=== PATIENT | female | born 1940 | race Caucasian/White ===

== ENCOUNTER 2019-10-23 06:55 | Day surgery (SDC) | payer MEDICARE, OTHER ==
[~2019-10-23 06:55] MED LIST: Lactated Ringers 1,000 ML IV SCH; Lidocaine 1%/Sod Bicarbonate in NS 8.4% 1 ML Syringe IDERM PRN; Sodium Chloride 0.9% 10 ML Syringe FLUSH PRN
--- NOTE | 2019-10-23 07:31 | PCM.PREANE ---
Preanesthetic Assessment - Procedure Proposed Procedure: Colonoscopy - Anesthesia/Transfusion/Family Hx Anesthesia History: Prior Anesthesia Without Reaction Family History of Anesthesia Reaction: No Transfusion History: No Prior Transfusion(s) - Review of Systems General: No Symptoms Pulmonary: No Symptoms Cardiovascular: Dyspnea on Exertion Gastrointestinal: Nausea Neurological: Numbness (in back "spurs in neck") Other: Reports: Diabetes, Sinus Problem (PND), Neck Pain (spurs ) - Physical Assessment NPO Status Date: 10/22/19 NPO Status Time: 00:00 Height: 1.57 m Weight: 83.96 kg ASA Class: 2 Mental Status: Alert & Oriented x3 Airway Class: Mallampati = 2 Dentition: Reports: Bridge, Caries Thyro-Mental Finger Breadths: 2 Mouth Opening Finger Breadths: 2 ROM/Head Extension: Limited/Partial Lungs: Clear to Auscultation, Normal Respiratory Effort Cardiovascular: Regular Rate, Regular Rhythm - Allergies Allergies/Adverse Reactions: Allergies Allergy/AdvReac Type Severity Reaction Status Date / Time No Known Allergies Allergy Verified 10/23/19 06:55 - Blood Blood Available: No Product(s) Available: None - Anesthesia Plan Pre-Op Medication Ordered: None - Acknowledgements Anesthesia Type Planned: MAC Pt an Appropriate Candidate for the Planned Anesthesia: Yes Alternatives and Risks of Anesthesia Discussed w Pt/Guardian: Yes Pt/Guardian Understands and Agrees with Anesthesia Plan: Yes PreAnesthesia Questionnaire HEENT History: Reports: Allergic Rhinitis, Sinusitis, Other (See Below) Other HEENT History: post nasal drip, wears glasses Cardiovascular History: Reports: High Cholesterol, Hypertension Respiratory History: Reports: Other (See Below) Other Respiratory History: acute bronchitis, cough, wheezing Gastrointestinal History: Reports: Irritable Bowel Syndrome Genitourinary History: Reports: Chronic Renal Insuffiency, Other (See Below) Other Genitourinary History: vaginal candidiasis 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 Musculoskeletal History: Reports: None Neurological History: Reports: None Psychiatric History: Reports: None Endocrine/Metabolic History: Reports: None Hematologic History: Reports: None Immunologic History: Reports: None Oncologic (Cancer) History: Reports: None Dermatologic History: Reports: Psoriasis - Infectious Disease History Infectious Disease History: Reports: None - Past Surgical History Head Surgeries/Procedures: Reports: None HEENT Surgical History: Reports: Cataract Surgery Cardiovascular Surgical History: Reports: None Respiratory Surgical History: Reports: None GI Surgical History: Reports: None Female Surgical History: Reports: None Male Surgical History: Reports: None Endocrine Surgical History: Reports: None Neurological Surgical History: Reports: Lumbar Spine Musculoskeletal Surgical History: Reports: None Oncologic Surgical History: Reports: None Dermatological Surgical History: Reports: None - SUBSTANCE USE Smoking Status *Q: Never Smoker Tobacco Use Within Last Twelve Months: No Second Hand Smoke Exposure: No Days Per Week of Alcohol Use: 1 Number of Drinks Per Day: 0 Total Drinks Per Week: 0 Recreational Drug Use History: No - HOME MEDS Home Medications: Home Meds Aspirin [Aspirin EC] 81 mg PO DAILY 10/22/19 [History] Canagliflozin/Metformin HCl [Invokamet Xr 150-500 mg Tablet] 1 tab PO DAILY 05/02 [History] Clobetasol Propionate 1 dose TOP BID 10/22/19 [History] Losartan Potassium 100 mg PO DAILY 10/22/19 [History] Metaxalone 800 mg PO TID PRN 10/22/19 [History] Vit C/E/Zn/Coppr/Lutein/Zeaxan [Preservision Areds 2 Softgel] 2 cap PO DAILY 05/02 [History] amLODIPine Besylate [Amlodipine Besylate] 10 mg PO DAILY 10/22/19 [History] atorvaSTATin Calcium [Atorvastatin Calcium] 20 mg PO BEDTIME 10/22/19 [History] hydroCHLOROthiazide [Hydrochlorothiazide] 12.5 mg PO DAILY 10/22/19 [History] - CURRENT (IN HOUSE) MEDS Current Meds: Current Medications Lactated Ringer's (Ringers, Lactated) 1,000 mls @ 125 mls/hr IV ASDIRECTED GREGG Stop: 10/23/19 23:00 Lidocaine/Sodium Bicarbonate (Buffered Lidocaine 1% In Ns 8.4%) 0.25 ml IDERM ONETIME PRN PRN Reason: Prior to IV Start Stop: 10/23/19 18:00 Sodium Chloride (Saline Flush) 10 ml FLUSH ASDIRECTED PRN PRN Reason: Keep Vein Open Stop: 10/23/19 18:00
[2019-10-23] MEDS ORDERED: Propofol 200 MG/20 ML SDV ONE ×5 (07:40→09:28)
[2019-10-23] MEDS ORDERED: fentaNYL 100 MCG/2 ML SDV ONE (07:40)
[2019-10-23] MEDS ORDERED: Lidocaine 1% 4 ML ONE (07:41)
[2019-10-23] MEDS ORDERED: Labetalol 100 MG/20 ML MDV ONE (08:16)
[2019-10-23] MEDS ORDERED: Lactated Ringers 1,000 ML ONE (09:01)
--- NOTE | 2019-10-23 09:59 | PCM.PRNOTE ---
- Free Text/Narrative Note: Date: 10/23/2019 Procedure: diagnostic colonoscopy Indication: positive cologuard screening test Endoscopist: Bebeto Peters MD Findings: redundant sigmoid with scattered diverticula. Appendiceal orifice visualized. Prep was not very good. Several small hyperplastic-appearing polyps in the proximal rectum, withe one larger pedunculated polyp in the distal rectum. Detailed Report: The patient was taken to the endoscopy suite and placed in left lateral decubitus position. Time out was performed, and monitored anesthesia care was initiated. The anus appeared normal. Digital rectal exam was unremarkable. The colonoscope was lubricated and inserted anally. The scope was advanced to the appendiceal orifice. This was difficult and tedious due to the redundancy of the colon, particularly the sigmoid. The prep was not very good, with the proximal half of the colon coated in sticky liquid stool. Thorough irrigation was used and mucosal surfaces were carefully inspected on slow withdrawal of the scope. There were scattered diverticula throughout the length of the colon, most concentrated in the sigmoid. There was lots of mucus coating the sigmoid and rectum. About a dozen small polypoid lesions were noted near the rectosigmoid junction, the largest of which were biopsied with forceps with bases fulgurated. There was one slightly larger, subcentimeter pedunculated polyp in the distal rectum that was biopsied with the hot snare. No significant hemorrhoidal disease appreciated on retroflexion of the scope within the rectum. Air was evacuated prior to complete withdrawal of the scope. The patient tolerated the procedure well. Bebeto Peters MD General Surgery
--- NOTE | 2019-10-23 10:06 | PCM48HPAN ---
Post Anesthesia Note - EVALUATION WITHIN 48HRS OF ANESTHETIC Vital Signs in Normal Range: Yes Patient Participated in Evaluation: Yes Respiratory Function Stable: Yes Airway Patent: Yes Cardiovascular Function Stable: Yes Hydration Status Stable: Yes Pain Control Satisfactory: Yes Nausea and Vomiting Control Satisfactory: Yes Mental Status Recovered: Yes Vital Signs: Last Vital Signs Temp 36.3 C 10/23/19 09:53 Pulse 67 10/23/19 09:53 Resp 14 10/23/19 09:53 BP 116/67 10/23/19 09:53 Pulse Ox 93 L 10/23/19 09:53 - COMMENTS/OBSERVATIONS Free Text/Narrative:: no anesthesia complications noted
== END 2019-10-23 10:30 | disposition home or self-care (01) ==
LOC: JD.SDS 06:55
PROVIDERS: ATTEND Surgery
DX: K62.1 Rectal polyp (principal); E78.00 Pure hypercholesterolemia, unspecified; E11.22 Type 2 diabetes mellitus with diabetic chronic kidney disease; I12.9 Hypertensive chronic kidney disease with stage 1 through stage 4 chronic kidney disease, or unspecified chronic kidney disease; N18.9 Chronic kidney disease, unspecified; Z11.59 Encounter for screening for other viral diseases; Z79.899 Other long term (current) drug therapy; Z79.82 Long term (current) use of aspirin; Z79.84 Long term (current) use of oral hypoglycemic drugs
CPT/HCPCS: 45380; 45385; 82962; J2001; J2704; J3010; J3490; J7120; 00811; 88305

== ENCOUNTER 2020-07-08 07:43 | Day surgery (SDC) | payer MEDICARE, OTHER ==
[2020-07-08] MEDS ORDERED: fentaNYL 100 MCG/2 ML SDV ONE (07:46)
[2020-07-08] MEDS ORDERED: Propofol 200 MG/20 ML SDV ONE (07:46)
[2020-07-08] MEDS ORDERED: Lidocaine 1% 4 ML ONE (07:47)
--- NOTE | 2020-07-08 08:12 | PCM.PREANE ---
Preanesthetic Assessment - Procedure Proposed Procedure: Colonoscopy - Anesthesia/Transfusion/Family Hx Anesthesia History: Prior Anesthesia Without Reaction Transfusion History: No Prior Transfusion(s) - Review of Systems General: No Symptoms Pulmonary: No Symptoms Cardiovascular: No Symptoms Gastrointestinal: No Symptoms Neurological: Paresthesia (rt leg, lateral surface numbness knee down), Pre- Existing Deficit Other: Reports: Diabetes - Physical Assessment NPO Status Date: 07/07/20 NPO Status Time: 22:30 Vital Signs: Last Vital Signs Temp 97.6 F 07/08/20 07:40 Pulse 98 07/08/20 07:40 Resp 18 07/08/20 07:40 BP 151/87 H 07/08/20 07:40 Pulse Ox 95 07/08/20 07:40 Height: 1.6 m Weight: 81.193 kg ASA Class: 2 Mental Status: Alert & Oriented x3 Airway Class: Mallampati = 3 Dentition: Reports: Normal Dentition Thyro-Mental Finger Breadths: 3 Mouth Opening Finger Breadths: 3 ROM/Head Extension: Limited/Partial Lungs: Clear to Auscultation, Normal Respiratory Effort Cardiovascular: Regular Rate, Regular Rhythm - Allergies Allergies/Adverse Reactions: Allergies Allergy/AdvReac Type Severity Reaction Status Date / Time No Known Allergies Allergy Verified 10/23/19 07:55 - Acknowledgements Anesthesia Type Planned: MAC Pt an Appropriate Candidate for the Planned Anesthesia: Yes Alternatives and Risks of Anesthesia Discussed w Pt/Guardian: Yes Pt/Guardian Understands and Agrees with Anesthesia Plan: Yes PreAnesthesia Questionnaire HEENT History: Reports: Allergic Rhinitis, Sinusitis, Other (See Below) Other HEENT History: post nasal drip, wears glasses Cardiovascular History: Reports: High Cholesterol, Hypertension Respiratory History: Reports: Other (See Below) Other Respiratory History: acute bronchitis, cough, wheezing Gastrointestinal History: Reports: Irritable Bowel Syndrome Genitourinary History: Reports: Chronic Renal Insuffiency, Other (See Below) Other Genitourinary History: vaginal candidiasis 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 Musculoskeletal History: Reports: None Neurological History: Reports: None Psychiatric History: Reports: None Endocrine/Metabolic History: Reports: None Hematologic History: Reports: None Immunologic History: Reports: None Oncologic (Cancer) History: Reports: None Dermatologic History: Reports: Psoriasis - Infectious Disease History Infectious Disease History: Reports: None - Past Surgical History Head Surgeries/Procedures: Reports: None HEENT Surgical History: Reports: Cataract Surgery Cardiovascular Surgical History: Reports: None Respiratory Surgical History: Reports: None GI Surgical History: Reports: None Female Surgical History: Reports: None Male Surgical History: Reports: None Endocrine Surgical History: Reports: None Neurological Surgical History: Reports: Lumbar Spine Musculoskeletal Surgical History: Reports: None Oncologic Surgical History: Reports: None Dermatological Surgical History: Reports: None - HOME MEDS Home Medications: Home Meds Aspirin [Aspirin EC] 81 mg PO DAILY 10/22/19 [History] Canagliflozin/Metformin HCl [Invokamet Xr 150-500 mg Tablet] 1 tab PO DAILY 10/22/19 [History] Clobetasol Propionate 1 dose TOP BID 10/22/19 [History] Losartan Potassium 100 mg PO DAILY 10/22/19 [History] Metaxalone 800 mg PO TID PRN 10/22/19 [History] Vit C/E/Zn/Coppr/Lutein/Zeaxan [Preservision Areds 2 Softgel] 2 cap PO DAILY 10/22/19 [History] amLODIPine Besylate [Amlodipine Besylate] 10 mg PO DAILY 10/22/19 [History] atorvaSTATin Calcium [Atorvastatin Calcium] 20 mg PO BEDTIME 10/22/19 [History] hydroCHLOROthiazide [Hydrochlorothiazide] 12.5 mg PO DAILY 10/22/19 [History] - CURRENT (IN HOUSE) MEDS Current Meds: Current Medications Lactated Ringer's (Ringers, Lactated) 1,000 mls @ 125 mls/hr IV ASDIRECTED GREGG Stop: 07/08/20 23:00 Lidocaine/Sodium Bicarbonate (Buffered Lidocaine 1% In Ns 8.4%) 0.25 ml IDERM ONETIME PRN PRN Reason: Prior to IV Start Stop: 07/08/20 18:00 Sodium Chloride (Saline Flush) 10 ml FLUSH ASDIRECTED PRN PRN Reason: Keep Vein Open Stop: 07/08/20 18:00 Discontinued Medications Fentanyl (Sublimaze) Confirm Administered Dose 100 mcg .ROUTE .STK-MED ONE Stop: 07/08/20 07:47 Lidocaine HCl (Xylocaine-Mpf 1%) Confirm Administered Dose 4 mls @ as directed .ROUTE .STK-MED ONE Stop: 07/08/20 07:48 Propofol (Diprivan 20 Ml) Confirm Administered Dose 400 mg .ROUTE .STK-MED ONE Stop: 07/08/20 07:47
--- NOTE | 2020-07-08 09:36 | PCM.PRNOTE ---
- Free Text/Narrative Note: Date: 07/08/2020 Procedure: diagnostic colonoscopy Indication: positive cologuard with inadequate colon prep on initial diagnostic colonoscopy Endoscopist: Bebeto Peters Findings: prep was good. Procedure was challenging due to redundancy. Cecum reached. Prep was good. Diverticulosis throughout. No new polyps identified. Detailed Report: The patient was taken to the endoscopy suite and placed in left lateral decubitus position. Timeout was performed, and monitored anesthesia care was initiated. Visual inspection of the anus was unremarkable. The colonoscope was inserted and advanced all the way to the cecum. This was challenging due to redundancy of the colon. With abdominal maneuvers, the cecum was reached. The appendiceal orifice was visualized. The prep was very good, much better than the last colonoscopy. Scope was slowly withdrawn and mucosal surfaces carefully inspected. Diverticulosis was noted throughout the entire length of the colon. No new polyps were identified. Air was suctioned prior to removal of the scope. The patient tolerated the procedure well.
--- NOTE | 2020-07-08 09:51 | PCM48HPAN ---
Post Anesthesia Note - EVALUATION WITHIN 48HRS OF ANESTHETIC Vital Signs in Normal Range: Yes Patient Participated in Evaluation: Yes Respiratory Function Stable: Yes Airway Patent: Yes Cardiovascular Function Stable: Yes Hydration Status Stable: Yes Pain Control Satisfactory: Yes Nausea and Vomiting Control Satisfactory: Yes Mental Status Recovered: Yes Vital Signs: Last Vital Signs Temp 97.9 F 07/08/20 09:36 Pulse 72 07/08/20 09:36 Resp 16 07/08/20 09:36 BP 101/62 07/08/20 09:36 Pulse Ox 94 L 07/08/20 09:36
== END 2020-07-08 10:13 | disposition home or self-care (01) ==
LOC: JD.SDS 07:43
PROVIDERS: ATTEND Surgery
DX: D12.0 Benign neoplasm of cecum (principal); K57.30 Diverticulosis of large intestine without perforation or abscess without bleeding; I12.9 Hypertensive chronic kidney disease with stage 1 through stage 4 chronic kidney disease, or unspecified chronic kidney disease; N18.9 Chronic kidney disease, unspecified; E78.00 Pure hypercholesterolemia, unspecified; E11.22 Type 2 diabetes mellitus with diabetic chronic kidney disease; Z79.899 Other long term (current) drug therapy; Z79.82 Long term (current) use of aspirin; Z98.890 Other specified postprocedural states
CPT/HCPCS: 45380; 88305; J2001; J2704; J3010; J7120; 00812

== ENCOUNTER 2021-10-14 14:15 | Inpatient (IN) | payer MEDICARE, OTHER ==
[2021-10-14] MEDS ORDERED: Metoprolol Tartrate 5 MG/5 ML SDV IVPUSH ONE ×2 (15:43→20:00)
[2021-10-14] MEDS ORDERED: Albuterol/Ipratropium 3.0-0.5 MG/3 ML Neb Soln NEB ONE ×2 (15:48→15:54)
[2021-10-14] MEDS ORDERED: Albuterol/Ipratropium 3.0-0.5 MG/3 ML Neb Soln ONE (15:49)
[2021-10-14] MEDS ORDERED: Furosemide 20 MG/2 ML VIAL IVPUSH ONE (16:14)
[2021-10-14 16:47] LABS: CORONAVIRUS COVID-19 NAA NEGATIVE (NEGATIVE)
[2021-10-14] MEDS ORDERED: Sodium Chloride 0.9% 10 ML Syringe FLUSH PRN ×2 (17:06)
[2021-10-14] MEDS ORDERED: Aspirin 325 MG Tab.EC PO ONE (17:13)
[2021-10-14] MEDS ORDERED: Metoprolol Tartrate 5 MG in Sodium Chloride 0.9% 50 ML IV ONE ×4 (17:14)
[2021-10-14] MEDS ORDERED: Aspirin 325 MG Tab.EC PO SCH (17:15)
[2021-10-14] MEDS ORDERED: Nitroglycerin 0.2 MG/HR Transdermal Patch TRDERM ONE (17:18)
[2021-10-14] MEDS ORDERED: Clopidogrel 75 MG Tab PO SCH (17:30)
[2021-10-14] MEDS ORDERED: Nitroglycerin 0.1 MG/HR Transdermal Patch TRDERM ONE (19:57)
[2021-10-14] MEDS ORDERED: Furosemide 40 MG/4 ML VIAL IVPUSH ONE (20:17)
[2021-10-14] MEDS: atorvaSTATin 40 MG Tab PO SCH (20:30)
[2021-10-14] MEDS ORDERED: Aspirin 81 MG Tab.Chew PO SCH (21:00)
[2021-10-15 07:34] LABS: HEMOGLOBIN A1C 6.8 %
[2021-10-15] MEDS ORDERED: Furosemide 40 MG/4 ML VIAL IVPUSH ONE ×2 (08:04→18:24)
[2021-10-15] MEDS: Aspirin 81 MG Tab.EC PO SCH (08:15)
[2021-10-15] MEDS: Metoprolol Tartrate 50 MG Tab PO SCH ×2 (08:15→20:39)
[2021-10-15] MEDS ORDERED: Diltiazem 50 MG/10 ML SDV IVPUSH ONE (08:29)
[2021-10-15] MEDS: Apixaban 5 MG Tab PO SCH ×2 (08:30→20:40)
[2021-10-15] MEDS ORDERED: Enoxaparin 40 MG/0.4 ML Syringe SUBCUT SCH (09:00)
[2021-10-15] MEDS ORDERED: Aspirin 325 MG Tab.EC PO SCH (09:00)
[2021-10-15] MEDS: Diltiazem 100 MG in Sodium Chloride 0.9% 100 ML IV SCH ×2 (11:14→22:25)
[2021-10-15] MEDS: Potassium Chloride 20 MEQ Tab.ER PO SCH ×2 (12:45→20:40)
[2021-10-15] MEDS ORDERED: Calcium Carbonate/Vitamin D3 600 MG-200 Units Tab PO ONE ×2 (14:25→20:00)
[2021-10-15] MEDS: atorvaSTATin 40 MG Tab PO SCH (20:40)
[2021-10-16] MEDS: Metoprolol Tartrate 50 MG Tab PO SCH (08:00)
[2021-10-16] MEDS: Aspirin 81 MG Tab.EC PO SCH (08:03)
[2021-10-16] MEDS: Apixaban 5 MG Tab PO SCH (08:04)
[2021-10-16] MEDS: Diltiazem 100 MG in Sodium Chloride 0.9% 100 ML IV SCH (08:05)
[2021-10-16] MEDS ORDERED: Diltiazem 180 MG Cap.CD PO SCH (09:00)
[2021-10-16] MEDS ORDERED: Losartan 100 MG Tab PO SCH (09:00)
[2021-10-16] MEDS ORDERED: Furosemide 40 MG Tab PO SCH (14:00)
== END 2021-10-16 15:21 | disposition home or self-care (01) | DRG 308 ==
LOC: JD.ED 14:15 → JD.ICU 17:32
PROVIDERS: ADMIT Pediatrics; ATTEND Pediatrics
DX: I50.9 Heart failure, unspecified (principal); I47.1 Supraventricular tachycardia; Z97.3 Presence of spectacles and contact lenses; I50.41 Acute combined systolic (congestive) and diastolic (congestive) heart failure; K58.9 Irritable bowel syndrome, unspecified; N28.9 Disorder of kidney and ureter, unspecified; I13.0 Hypertensive heart and chronic kidney disease with heart failure and stage 1 through stage 4 chronic kidney disease, or unspecified chronic kidney disease; I50.1 Left ventricular failure, unspecified; J30.9 Allergic rhinitis, unspecified; E78.5 Hyperlipidemia, unspecified; E11.9 Type 2 diabetes mellitus without complications; M19.90 Unspecified osteoarthritis, unspecified site; E66.9 Obesity, unspecified; N18.9 Chronic kidney disease, unspecified; E78.00 Pure hypercholesterolemia, unspecified; I44.7 Left bundle-branch block, unspecified; Z20.822 Contact with and (suspected) exposure to COVID-19; Z79.82 Long term (current) use of aspirin; Z98.49 Cataract extraction status, unspecified eye; Z79.899 Other long term (current) drug therapy; Z68.33 Body mass index [BMI] 33.0-33.9, adult
CPT/HCPCS: 0240U; 36415; 71045; 71046; 80048; 80053; 83036; 83735; 83880; 84484; 85007; 85025; 85027; 85379; 86140; 93005; 93306; 94640; 96374; 96375; 99285; A9270-GY; J1940; J3490; J7620-GY